=== PATIENT | female | born 1945 | race Caucasian/White ===

== ENCOUNTER 2018-05-02 12:06 | Observation (INO) | payer MEDICARE, SELFPAY ==
[2018-05-02] VITALS (7 sets, daily range): BP systolic 123–168; BP diastolic 65–91; PULSE 67–116; RESP 14–20; TEMP 36.7–37.3; O2SAT 95–100; BMI 32.9
--- NOTE | 2018-05-02 12:26 | DI.RAD.S_ITS ---
PROCEDURE: XR HIP W PEL IF DONE LT 2V INDICATIONS: left hip pain TECHNIQUE: AP pelvis with lateral view(s) of the left hip(s). COMPARISON: None. FINDINGS: Bones: There is a comminuted fracture of both the superior and inferior left pubic ramus with mild displacement. There is an ill-defined lucency seen on lateral view within the left femoral neck. It is nondisplaced. Soft tissues: The visualized bowel gas pattern is normal. Large calcification is present within the pelvis suggestive of calcified uterus/fibroid. IMPRESSION: Comminuted left superior and inferior pubic ramus fracture with mild displacement. In addition, there is a nondisplaced lucency within the left femoral neck seen on lateral view suspicious for fracture. Dictated by: Arlette Meadows M.D. on 05/02/2018 at 13:18 Approved by: Arlette Meadows M.D. on 05/02/2018 at 13:19
--- NOTE | 2018-05-02 14:15 | DI.CT.S_ITS ---
PROCEDURE: CT HEAD/BRAIN WO CON INDICATIONS: trauma TECHNIQUE: Noncontrast 4.5 mm thick angled axial sections acquired from the foramen magnum to the vertex, with coronal and sagittal reformats. For radiation dose reduction, the following was used: automated exposure control, adjustment of mA and/or kV according to patient size. COMPARISON: None. FINDINGS: Image quality: Excellent. CSF spaces: Basal cisterns are patent. No extra-axial fluid collections. The ventricles are symmetric in size and shape. Brain: No intracranial bleeds or masses. There is cerebral volume loss for age, with resultant ventricular and sulcal prominence. There are periventricular and deep white matter chronic small vessel ischemic changes. There is intracranial internal carotid artery atherosclerosis. Skull and face: Calvarium and visualized facial bones appear intact, without suspicious lesions. Sinuses: Visualized sinuses and mastoids are clear. IMPRESSION: 1. No acute intracranial process. 2. Moderate atrophy and chronic microvascular ischemic changes. Dictated by: Arlette Meadows M.D. on 05/02/2018 at 16:37 Approved by: Arlette Meadows M.D. on 05/02/2018 at 16:37
[2018-05-02] MEDS: HYDROMORPHONE 1 MG INJ 0.5 MG IV ×2 (14:34→17:56)
--- NOTE | 2018-05-02 14:36 | DI.CT.S_ITS ---
PROCEDURE: CT PEL WO CON INDICATIONS: hip fracture seen on x-ray today? TECHNIQUE: Noncontrast 3 mm axial sections acquired through the bony pelvis, with coronal and sagittal reformatting. COMPARISON: None. FINDINGS: Image quality: Excellent. Bones: As previously identified, there are comminuted fractures of both the superior and inferior left pubic ramus with displacement. In addition, there is a nondisplaced fracture of the left S1 vertebral body, obscured on prior exam secondary to overlying bowel gas. The there is no visualized left hip fracture as indicated of area of concern. However, there is sclerosis and areas of poorly defined sclerotic lucency within the right femoral head as well as areas of subchondral sclerosis and cyst formation. Soft tissues: Visualized soft tissues of the intra-abdominal pelvic contents demonstrates a large calcification within the uterus likely fibroid. Fat-containing ventral hernia is present. Colonic diverticula are noted. IMPRESSION: 1. Comminuted fracture of the superior and inferior left pubic rami. 2. Nondisplaced fracture of the left S1 vertebral body. 3. Focal areas of sclerosis and lucency within the right femoral head. Overall appearance is suggestive of chronic fracture. 4. Prominent calcification within the uterus likely fibroid. 5. Diverticulosis. Dictated by: Arlette Meadows M.D. on 05/02/2018 at 16:38 Approved by: Arlette Meadosw M.D. on 05/02/2018 at 16:44
--- NOTE | 2018-05-02 15:08 | PC.NURSE ---
pt. returns to room from head ct scan
[2018-05-02 15:50] LABS: Add Manual Diff / Slide Review NO; Basophils Percent Auto 0.3 % (0-2); Hematocrit 31.7 % (36-46); Hemoglobin 10.8 g/dL (12.0-16.0); Lymphocytes Percent Auto 19.3 % (25-40); Mean Corpuscular HGB Conc 34.2 % (30-36); Mean Corpuscular Hemoglobin 36.4 PG (26-34); Mean Corpuscular Volume 106.3 fL (80-100); Monocytes Percent Auto 10.5 % (3-14); Neutrophils Absolute Auto 4500 /uL (3000-5900); Neutrophils Percent Auto 69.9 % (50-75); Platelet Count 172 X10^3/uL (150-400); Red Blood Cell Count 2.98 X10^6/uL (4.0-5.2); Red Cell Distribution Width 14.2 % (11.6-14.8); White Blood Cell Count 6.4 X10^3/uL (4.5-11.0)
[2018-05-02 15:53] LABS: Alanine Aminotransferase 31 IU/L (9-52); Albumin Globulin Ratio 1.5 (1.0-2.8); Alkaline Phosphatase 114 U/L (38-126); Aspartate Aminotransferase 46 IU/L (14-36); Bilirubin Total 1.2 mg/dL (0.2-1.3); Blood Urea Nitrogen 14 mg/dL (7-17); Calcium 9.3 mg/dL (8.4-10.2); Carbon Dioxide 33 mmol/L (22-32); Chloride 98 mmol/L (98-107); Estimated Glomerular Filt Rate > 60.0 mL/min (>60); Ethanol (ETOH) < 10 mg/dL; Gamma Glutamyl Transpeptidase 66 U/L (12-43); Globulin 2.7 g/dL (1.7-4.1); Glucose 111 mg/dL (80-110); HEMOLYSIS < 15 (0-50); Potassium 3.7 mmol/L (3.4-5.1); Sodium 137 mmol/L (137-145); Total Protein 6.7 g/dL (6.3-8.2)
--- NOTE | 2018-05-02 16:49 | PC.NURSE ---
Pt. and updated about plann of care. Per MD - still awaiting final CT report to decide disposition. Pt. denies need at present. verbilizes same.
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
--- NOTE | 2018-05-02 17:01 | DI.CT.S_ITS ---
PROCEDURE: CT CERVICAL SPINE WO CON INDICATIONS: trauma? spine fxr w/ unclear history. TECHNIQUE: Noncontrast 3 mm thick sections acquired from the skull base to the T4 level. Sagittal and coronal reformats were then constructed. For radiation dose reduction, the following was used: automated exposure control, adjustment of mA and/or kV according to patient size. COMPARISON: None. FINDINGS: Image quality: Excellent. Bones: No fractures or dislocations. Visualized superior ribs are intact. There is slight reversal of normal cervical curvature. Multilevel degenerative changes are present including severe disc space narrowing at C5-6. There is trace anterolisthesis of C3 on C4, trace retrolisthesis of C5 on C6 and C6 on C7. Multilevel anterior osteophytes are present. Soft tissues: Prevertebral soft tissues are normal in thickness. No paravertebral hematomas. No apical pneumothoraces. IMPRESSION: Degenerative changes without visualized fracture. Dictated by: Arlette Meadows M.D. on 05/02/2018 at 18:44 Approved by: Arlette Meadows M.D. on 05/02/2018 at 18:46
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
--- NOTE | 2018-05-02 19:51 | PC.NURSE ---
attempted to call report - RN on floor not available.
[2018-05-02] MEDS: HYDROMORPHONE 0.5 MG INJ IV ×2 (21:43→22:17)
--- NOTE | 2018-05-02 23:42 | PC.NURSE ---
admit pt to ac from ER around 1999. VSS. pt admitted after falling last evening and being unable to ambulate today. Pt assisted to transfer via slider board. oriented to room and plan of care. medicated with IV dilaudid once order obtained and processed. bed alarm on per protocol. instructed not to attempt ambulation. order for adapted physical education teacher to consult/treat. fluids and nutrition provided. able to void to bedpan.
--- NOTE | 2018-05-03 00:51 | PC.NURSE ---
Addendum entered by Vanessa Todd R.N. 05/03/18 06:01: Needing to use bed [place] this morning and turning was very difficult and painful despite having received Dilaudid at 0416. Hollering out with movement stating I don't know how it can hurt this bad. Anxious about what is going to happen with therapy later today. Discussed need to be moving and not lying in same position as pain can be worse with inactivity; verbalizes understanding but still extremely reluctant with any movement and grabbing onto staff when turned. States most of pain is in left buttock. Original Note: Addendum entered by Vanessa Todd R.N. 05/03/18 05:26: Attempted to get patient to try repositioning but adamantly refuses stating I just work up. Explained that therapy would be working with her today and the longer she doesn't move the worse the pain will be when she does attempt to move. Verbalizes understanding but still declines to try any movement. States she doesn't need to use bedpan to void at this time. Refused to have Sherry bed tilted even slightly to change pressure. Original Note: Addendum entered by Vanessa Todd R.N. 05/03/18 04:33: Patient complaining of 6/10 left hip pain; medicated with Dilaudid Original Note: Patient is alert and oriented. Breath sounds CTA with RA sat of 94%. HRR. Denies nausea. BT present and abdomen is soft. Denies any urinary problems but currently needing to use bedpan due to pain and inability to walk due to fx/pain. Refusing to be turned unless needing to use bedpan. Chronic bilateral LE neuropathy unchanged since prior to admit. VSS. Fall risk is high and bed alarm is activated.
[2018-05-03 00:52] VITALS: BP 132/78; PULSE 77; RESP 15; TEMP 36.6; O2SAT 94
[2018-05-03] MEDS: SODIUM CHLORIDE 0.9% FLUSH 10 ML IV ×3 (04:17→21:22)
[2018-05-03] MEDS: HYDROMORPHONE 1 MG INJ IV (04:17)
[2018-05-03 07:35] VITALS: BP 121/67; PULSE 79; RESP 15; TEMP 36.9; O2SAT 97
--- NOTE | 2018-05-03 08:29 | PC.NURSE ---
Addendum entered by Debbie Hernandez R.N. 05/03/18 09:09: 0909 - D/c IV Dilaudid as Pt is having signifcant anxiety/paranoia, [place] ordered for pain control. Call into [facility] for pharmacy records. Original Note: Am shift, Pt is notably anxious this AM, fearful about POC, and expectation for the day. Is needing reassurance and encouragement about offloading pressure and bed mobility. PT into assess Pt and discussed options for bedrest. Calling out to staff for assist. BA active. No nausea, IVP Dilaudid for pain control, Pt does state this is very short acting. Will discuss with hospitalist.
--- NOTE | 2018-05-03 10:05 | PM.HP.1 ---
History of Present Illness Date Patient Seen: 05/03/18 Time Patient Seen: 09:30 Chief complaint: GLF 7/, L hip pain Narrative: Patient is a 72-year-old female who presented to the emergency department 1 day after a ground level fall. Patient and spouse live in [place] but are here traveling on their boat. Patient was returning to the boat and lost her balance and fell to the ground. She was able to get back to her boat but the following morning was unable to walk and paramedics were called who brought her to the emergency department. Imaging showed a left superior and inferior pubic rami fracture. Fall risk factor includes alcohol dependency. She denies prior history of fracture. She was admitted to hospital observation. This morning she has not yet ambulated out of bed. She complains of pain in the left buttock area with movement of the leg. Patient History Medical History Fracture of pelvis (Acute) Alcohol dependence (Chronic) Neuropathic pain (Chronic) Family & Social History Social History: household members spouse Prior Living Arrangements House Safety & Behavioral: Feels Safe in Current Yes Environment Been Physically Hurt or No Threatened By a Person Suicidal Ideation Description None Suicide Plan Description No Plan Tobacco & Substance use: Smoking Status Never smoker alcohol intake current alcohol intake frequency patient vague about intake, ?a few glasses of wine ? Substance Use Type does not use Meds Home Medications Medication Instructions Recorded Confirmed Type gabapentin 400 mg PO QPM 05/03/18 05/03/18 History Allergies Allergy/AdvReac Type Severity Reaction Status Date / Time codeine AdvReac Unknown Verified 05/02/18 12:24 ibuprofen AdvReac Unknown Verified 05/02/18 12:24 morphine AdvReac Unknown Verified 05/02/18 12:24 Sulfa (Sulfonamide AdvReac Unknown Verified 05/02/18 12:24 Antibiotics) Review of Systems Review of Systems All systems reviewed & are unremarkable except as noted in HPI and below Exam Vital Signs (past 8 hours): - 05/03/18 07:35 Temperature 98.4 F Pulse Rate 79 Respiratory Rate 15 Blood Pressure 121/67 H Pulse Oximetry 97 Oxygen Delivery Method Room Air Oxygen Flow Rate 0 Narrative Exam Narrative: GENERAL: Alert mildly anxious female but otherwise in no distress lying still in bed HEAD: Atraumatic. Normocephalic. EYES: Pupils equal, round and reactive. Extraocular motions intact. No scleral icterus. No injection or drainage. OROPHARYNX: moist mucosa NECK: Trachea midline. No JVD or lymphadenopathy. CARDIOVASCULAR: Regular rate and rhythm without murmurs, gallops, or rubs. RESPIRATORY: Clear to auscultation bilaterally. GASTROINTESTINAL: Abdomen nondistended, soft, non-tender. No hepato-splenomegaly, or palpable masses. EXTREMITIES: No edema. Distal pedal pulses easily palpable bilaterally. Diminished sensation in feet bilaterally. NEUROLOGICAL: Alert, well oriented, speech is intact, nonfocal except as relating to the left leg causes posterior hip pain with movement SKIN: warm, dry, no rash Objective Labs Result Diagrams: 05/02/18 15:35 05/02/18 15:35 Labs: Head CT noncontrast: No acute findings. Moderate atrophy and chronic microvascular changes. Pelvis CT: Comminuted fracture of superior and inferior left pubic rami, nondisplaced fracture of the left S1 vertebral body, focal areas of sclerosis and lucency within right femoral head suggestive of chronic fracture, likely uterine fibroid, diverticulosis C-spine CT: Degenerative changes, no acute finding Chest abdomen and pelvis CT with contrast:1. 3 mm right lower lobe pulmonary nodule, nonspecific. No priors are available for comparison. Recommend interval followup as below. 2. 4 mm focus of enhancement along the right lateral hepatic lobe. No priors are available for comparison. This is overall nonspecific. This could be related to a small hemangioma. Given history of trauma liver contusion/laceration cannot be definitively excluded. However, there is no surrounding secondary signs of trauma. Recommend clinical correlation and interval followup as indicated. 3. Comminuted left superior and inferior pubic rami fractures as previously identified. Sclerosis and lucency within the right femoral head most suggestive of chronic fracture again identified. 4. Uterine fibroid. Laboratory Results - last 24 hr 05/02/18 05/02/18 15:35 15:35 WBC 6.4 RBC 2.98 L Hgb 10.8 L Hct 31.7 L MCV 106.3 H MCH 36.4 H MCHC 34.2 RDW 14.2 Plt Count 172 Neut % (Auto) 69.9 Lymph % (Auto) 19.3 L [place] % (Auto) 10.5 Eos % (Auto) 0.0 L Baso % (Auto) 0.3 Neut # (Auto) 4500 Sodium 137 Potassium 3.7 Chloride 98 Carbon Dioxide 33 H BUN 14 Creatinine 0.50 L Estimated GFR > 60.0 BUN/Creatinine Ratio 28.0 H Glucose 111 H Calcium 9.3 Total Bilirubin 1.2 GGT 66 H AST 46 H ALT 31 Alkaline Phosphatase 114 Total Protein 6.7 Albumin 4.0 Globulin 2.7 Albumin/Globulin Ratio 1.5 Ethyl Alcohol < 10 Assessment & Plan Plan: Assessment/Plan Narrative: 1. Left pelvis fractures: Imaging reviewed. This is non surgically managed with weight-bearing as tolerated. Physical therapy consult requested. Ordered Tylenol and hydrocodone as needed. Patient started on low-dose Lovenox for DVT prophylaxis which should be continued until she is sufficiently ambulatory. At this time patient is not able to safely ambulate and will need longterm facility rehab placement. There is some suggestion on CT of chronic fracture right femoral head although patient denies past history of fracture but may certainly have had other falls in the past. 2. Alcohol dependence: Patient vague about alcohol intake but has significant suggestive laboratory abnormalities including macrocytic anemia, mildly elevated GGT and does confirm that she is drinking too much. Advise as to alcohol cessation and this is likely her predisposing risk factor for the fall. [facility] protocol. 3. Macrocytic anemia, likely chronic, likely ETOH related: Check vitamin B12 level as well. Patient and advise of laboratory abnormalities, recommendation for alcohol cessation, and recommendation for follow-up lab monitoring with her PCP. 4. Incidental findings on CT including 3-4 mm right lung nodule, likely liver hemangioma: Patient and advised on CT findings and consideration of repeat lung and/or liver CT in 1 year to ensure stability of findings. 5. Peripheral neuropathy, unknown etiology, but likely ETOH related: Continue patient's gabapentin 400 mg each evening per home routine. 6. Disposition: Observation admit, likely discharge ThursdayMay 04, to [facility]. Quality VTE Deep Vein Thrombosis/Pulmonary Embolism Present on Admission: No
[2018-05-03] MEDS: HYDROCODONE/ACET 5/325 TABLET 1 TAB PO (10:19)
--- NOTE | 2018-05-03 10:49 | CM.DANOTE ---
Addendum entered by TYE Gross 05/03/18 15:01: ADD: Per Maida at [facility], she met with pt's spouse and discussed financial arrangement and [facility] can accept the pt private pay at discharge. SW met bedside with pt and spouse was via phone and they confirmed that they are still agreeable to private pay SNF at [facility] when medically stable. BF Original Note: Patient is a 72 year old female who was admitted on 05/02/18 for GLF and hip pain. Pt has MCR and [employer] for insurance and her PCP is not listed due to pt residing in [place]. EMR was reviewed. Per MD, surgical intervention not needed at this time and recommending SNF rehab due to pain and mobility issues for likely tomorrow if still medically stable. Per PT, pt currently not tolerating much due to pain and recommending SNF at d/c. SW met bedside with pt and spouse and explained role and they confirmed that they live permanently in [place] and are currently staying in [place] on their large boat for an extended stay and have done this for the past 5 years. Pt's plan had been to go back to [place] on their boat on Thu but now realize that SNF rehab needed for a couple weeks prior to going back to [place] safely. SW provided the SNF Choice List and pt preference is [facility] and spouse already toured their facility. SW discussed pt's OBS STATUS and not meeting Medicare Criteria of Inpt Status to cover SNF rehab stay. SW discussed tentative daily cost of private pay SNF and encouraged them to discuss financial with [facility] admissions. Spouse agreeable and SW called [facility] admissions Maida and set up a time for them to discuss their questions and financial situation together at 1130 today. SW made referral to [facility] to review and completed PASRR. Plan: SW to follow closely after spouse discusses financial cost of Private Pay SNF with [facility] admissions Maida today towards likely placement tomorrow if pt is medically stable and pt and [facility] agreeable. TYE Gross Discharge Planning/Care Management CM Discharge Assessment Start: 05/03/18 10:44 Freq: Status: Active Protocol: Document 05/03/18 10:44 BF (Rec: 05/03/18 10:48 BF [id number]) Discharge Planning Assessment Assigned Software Licensing Executive TYE History Provided By Patient Significant Other Expected Length of Stay 2 Has Patient been admitted in last 30 No days? Is this patient on Medicare? Yes Is the admit diagnosis the same? Yes Comment Obs Status Prior Living Arrangements House Household Members spouse Type of transporation used prior to Drives own vehicle admit Comment Here from [place] staying on their large boat with plans to return home to [place] when pt is stable. Independent with ADL's Yes Is patient alert and oriented? Yes Caregiver for Another No Comment Patient independent with ADL's at baseline Patient Discharge Plan Description Correction Facility Referrals Initiated Correction Comment Patient would be private pay at SNF due to OBS STATUS Comment Pt needs SNF due to pain and inability to mobilize right now and staying on a boat while here. Discharge Plan Correction Facility Transportation Arrangement Likely provided by [facility] if pt's pain is manageable. If patient plan is SNF: Has PASSR been Yes completed? Review Status In Process Next Review Type Discharge Review
[2018-05-03 12:13] LABS: Vitamin B12 258 pg/mL (239-931)
[2018-05-03] MEDS: ENOXAPARIN 40 MG/0.4 ML SYRINGE SUBCUT (12:54)
[2018-05-03 13:00] VITALS: BP 110/56; PULSE 85; RESP 18; TEMP 36.8; O2SAT 96
--- NOTE | 2018-05-03 13:29 | PT.IIE ---
Medical History (Last Updated 05/03/18 @ 10:09 by Hans White MD) Fracture of pelvis (Acute) Alcohol dependence (Chronic) Neuropathic pain (Chronic) Physical Therapy Inpatient Evaluation/Re-Eval Medical Review Prior Functional Status Medical History Reviewed Yes Diet/Fluid Consistency Regular Communication no known deficits Mobility and Gait completely independent, never fallen before Activities of Daily Living and IADL's completely independent Prior Functional Level (Other details) considers herself a very active person, hates being sedentary Social History Household Members spouse Living Arrangements House Number of Floors (Floors) One Floor Number of Stairs To Enter/Railing? 0 Home Environment Standard Height Toilet Walk in Shower Employment Status Retired Additional Social History Comment lives in [place], has been in [place] on her boat for vacation. Physical Therapy Current Condition Current Condition Evaluation Date 05/03/18 Treatment Diagnosis S1, L pubic rami, and possible L prox femur fractures Onset Date 05/01/18 Weight Bearing Status Weight Bearing Status Weight Bear as Tolerated Subjective Physical Therapy Visit Type Type Initial Evaluation Physical Therapy Visit Comments Patient Comments Pt reports significant pain with any movement, really wants to get back to home in [place] as soon as possible. Therapy Pain Assessment Pain When Pain Assessed During Mobility Pain Present Pain Present Pain Reported Location Left Hip Intensity 10 Scale Used Numeric (1 - 10) Description Acute Sharp Stabbing With Movement Pain Behaviors Calling Out Crying Facial Grimacing Wincing Pain Management Techniques Apply Cold Distraction Modification of Treatment Re-positioning Timing of Activity with Medications PT-Bed Mobility Assessment Rolling Level of Assist Maximal Assistance 2 Person Assistance Scooting Scooting Up and Down in Bed Dependent PT-Transfer Assessment Transfers Transfer Technique Mechanical Lift Transfer Ability Level of Assist Total Assistance 2 Person Assistance Comments Mobility Comments Pt unable to actively participate in any mobility due to significant pain in L buttock/back, needs total assist. Gait Assessment Comments Gait Comments not appropriate to assess Stair Climbing Assessment Comments Stair Climbing Comments not appropriate to assess PT-Balance Assessment Comments Other Balance Tests/Deviations/Treatment unable to assess unsupported : seated balance, pt was able to maintain neutral position with HOB fairly elevated (no falling to either side). Orientation Orientation/Cognition Level of Alertness Alert Orientation Name Age Birthday Month Date Year Day of Week Place Situation Language Function Ability No Deficits Noted Safety Awareness Understands Safety Issues Memory Description No Deficits Noted Comments Pt reported being loopy from pain meds but was able to answer all questions without difficulty. Gross Range of Motion Upper Extremity ROM Assessment Within Functional Limits Lower Extremity ROM Impairments RLE grossly intact, LLE unable to test due to significant pain with any movement Strength Upper Extremity Strength Assessment Within Functional Limits Comments Strength Comments RLE grossly intact, LLE unable to test due to significant pain with any movement Physical Therapy Treatment Education Education Provided Precautions Weight Bearing Status Safety PT Summary Assessment and Plan Potential Rehabilitation Potential Fair Status of Condition at Evaluation Evolving Summary Impairments Pain Bed Mobility Transfers Gait Activity Tolerance Progress Towards Goals Slow Progress due to Pain Assessment Summary Pt is 2 days s/p GLF resulting in L pubic rami fractures, S1 vertebral body fracture, and possible L proximal femur fracture. Pt is currently most limited by significant pain, both at rest and especially with all movement. Pt is not able to actively participate in any mobility activities, requiring 2 person dep A for all mobility. This is well below pt's reported functional baseline, and it is not safe for pt to return to her home at this time (especially because it's in [place]). Pt does have potential for functional improvement and will benefit from transition to SNF rehab for continued skilled PT/OT at the subacute level. Pt/SO express understanding and are in agreement with this plan. Goals Bed Mobility Goal Moderate Assistance Transfer Goal Moderate Assistance Front Wheeled Walker Days to Meet Goals 3 Frequency of Treatment Frequency Of Treatment Twice a Day Treatment Plan Physical Therapy Treatment Plan Bed Mobility Training Transfer Training Gait Training Therapeutic Exercise Discharge Planning Recommendations To Nursing Amount of Assist Needed Total Assistance Mechanical Lift Discharge Recommendations PT Discharge Recommendations SNF Rehab
[2018-05-03] MEDS: HYDROCODONE/ACET 5/325 TABLET 2 TAB PO ×3 (13:45→21:22)
[2018-05-03 15:00] VITALS: BP 112/57; PULSE 78; RESP 16; TEMP 36.9; O2SAT 96
[2018-05-03] MEDS: GABAPENTIN 100 MG CAPSULE 400 MG PO (17:05)
[2018-05-03 20:00] VITALS: BP 134/73; PULSE 81; RESP 14; TEMP 36.9; O2SAT 95
--- NOTE | 2018-05-03 22:45 | PC.NURSE ---
Evening Shift Note Pt A&O, VSS, 99% RA. Pt consistently rating pain 10/10 pre pain medication, post pain medication expresses minimal relief 9/10, FLACC 4/10. Refusing minimal turning Q2H d/t pain. Pt reminded of high risk of pressure ulcers if not full off loaded from coccyx Q2H. Pt expresses understanding but continuously refusing full off loading from bottom and only slight changes, will push away this RN and CNAs when attempting to turn or reposition and yelling stop. Scheduled pain medication given tonight and currently pt resting peacefully, FLACC 0/10.
[2018-05-04 01:30] VITALS: BP 134/77; PULSE 81; RESP 16; TEMP 36.8; O2SAT 98
--- NOTE | 2018-05-04 01:37 | PC.NURSE ---
Addendum entered by Vanessa Todd R.N. 05/04/18 06:31: States she slept really well between being awakened to reposition, receive pain meds and/or use bedpan. States her hip feels different this morning and is wondering if the fx has gotten worse although states the pain is not as severe but still rates it as 6/10. Original Note: Addendum entered by Vanessa Todd R.N. 05/04/18 03:09: After receiving scheduled Vicodin patient was allowed to rest for 30 minutes and then turned to place on bedpan and remove bedpan. Each time she needs detailed explanations as to what is going to be done and then as soon as any movement begins she starts crying out to stop because it hurts too bad. Needs much reassurance during activity of moving but needs staff to be calm and persistent otherwise will not move. Once she was back positioned on side was more relaxed and calmer. During turn did state she heard something pop and now it feels different but was unable to state how it felt different or if it was better or worse. Original Note: Alert and oriented. Breath sounds CTA with RA sat of 98%. HRR. Denies nausea. BT present and abdomen is soft. Has been voiding using bedpan although extremely reluctant for any movement. Had been asleep since shift change and when asked questions upon waking would consistently respond with I'm just waking up and not answering specific questions. Discussed plan to reposition but patient states she needs to have some time before she is turned as I'm just waking up, and it hurts bad; is due for pain meds shortly. Fall risk score is high due to fall prior to hospitalization and bed alarm is activated. 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
[2018-05-04] MEDS: HYDROCODONE/ACET 5/325 TABLET 2 TAB PO ×2 (01:45→06:23)
[2018-05-04 08:25] VITALS: BP 110/63; PULSE 87; RESP 18; TEMP 36.8; O2SAT 96
[2018-05-04] MEDS: ENOXAPARIN 40 MG/0.4 ML SYRINGE SUBCUT (09:39)
[2018-05-04] MEDS: SODIUM CHLORIDE 0.9% FLUSH 10 ML IV ×2 (09:40→21:02)
[2018-05-04] MEDS: OXYCODONE IR 10 MG TABLET PO ×4 (10:04→21:01)
--- NOTE | 2018-05-04 10:28 | PM.PN.1 ---
Subjective Date Patient Seen: 05/04/18 Time Patient Seen: 08:28 Interval history: This is day 3 status post ground level fall with left superior and inferior pubic rami fracture. Patient appears of slept well in between nursing care tasks. When awakened she complains of severe hip discomfort, ?wondering if the fracture is worse?. She appears very hesitant to move or work with physical therapy and she describes her pain 10/10 with movement. Both her and her are insistent about staying 1 more night to ?be stabilized? for pain control. Exam Vital Signs (past 8 hours): - 05/04/18 08:25 Temperature 98.3 F Pulse Rate 87 Respiratory Rate 18 Blood Pressure 110/63 Pulse Oximetry 96 Oxygen Delivery Method Room Air Oxygen Flow Rate 0 Const General: cooperative, healthy appearing, comfortable, well developed and well groomed Nutritional Appearance: average body habitus Orientation: alert, awake and oriented x3 HENMT Head: normal to inspection, normocephalic and atraumatic Eyes General: appearance normal, both eyes and all related structures Pupils: PERRL Neck Neck: normal visual inspection, trachea midline and supple Other: No JVD or lymphadenopathy Chest Chest: normal inspection of the chest Resp Effort & Inspection: normal respiratory effort and able to speak in complete sentences Auscultation: clear to auscultation bilaterally Cardio Rate: regular rate Rhythm: regular rhythm Heart Sounds: S1 normal and S2 normal Other: No rubs, gallops, clicks or murmurs appreciated GI Inspection: normal to inspection Palpation: soft Percussion: normal to percussion Auscultation: normal bowel sounds Other: No masses or tenderness Other: Voiding without difficulty Back/Spine/Pelvis Other: Patient complains of left hip and pelvic discomfort with movement of left leg. Skin General: no rashes or lesions noted, dry skin and warm Neuro General: alert, awake and oriented x3 Cognition: normal cognition Speech: speech normal Other: Decreased muscle strength on left lower extremity related to pain and discomfort. Decreased sensitivity to tactile stimulus in lower extremities secondary to neuropathy. Extrem General: capillary refill normal, no pedal edema and no calf tenderness Psych Appearance: grossly normal Mood: congruent mood Affect: normal affect Attitude: cooperative Thought Process: normal Thought Content: normal Judgment: judgment good Objective Labs Result Diagrams: 05/02/18 15:35 05/02/18 15:35 Labs: Laboratory Results - last 24 hr 05/02/18 15:35 Vitamin B12 258 Assessment & Plan Plan: Assessment/Plan Narrative: 1. Left pelvis fractures: Imaging reviewed. This is non surgically managed with weight-bearing as tolerated. Physical therapy evaluated this patient. She has not had any weight-bearing as of this morning secondary to her discomfort. She was changed to oxycodone q.3 hours for pain control. Patient started on low-dose Lovenox for DVT prophylaxis which should be continued until she is sufficiently ambulatory. At this time patient is not able to safely ambulate and will need nursing home facility rehab placement. There is some suggestion on CT of chronic fracture right femoral head although patient denies past history of fracture but may certainly have had other falls in the past. 2. Alcohol dependence: Patient vague about alcohol intake but has significant suggestive laboratory abnormalities including macrocytic anemia, mildly elevated GGT and does confirm that she is drinking too much. Advise as to alcohol cessation and this is likely her predisposing risk factor for the fall. CIWA protocol. CIWA scores 4-5. She was started on p.o. Xanax this morning for control of her anxiety. 3. Macrocytic anemia, likely chronic, likely ETOH related: Vitamin B12 level was normal. Patient and advise of laboratory abnormalities, recommendation for alcohol cessation, and recommendation for follow-up lab monitoring with her PCP. 4. Incidental findings on CT including 3-4 mm right lung nodule, likely liver hemangioma: Patient and advised on CT findings and consideration of repeat lung and/or liver CT in 1 year to ensure stability of findings. 5. Peripheral neuropathy, unknown etiology, but likely ETOH related: Continue patient's gabapentin 400 mg each evening per home routine. 6. Disposition: Observation admit, likely discharge ThursdayMay 05, to [facility] for further rehab. Quality VTE Deep Vein Thrombosis/Pulmonary Embolism Present on Admission: No
[2018-05-04] MEDS: ALPRAZolam 0.25 MG TABLET PO ×2 (10:34→16:48)
--- NOTE | 2018-05-04 11:50 | PT.IPTN ---
Physical Therapy Treatment Note M2 PT-IP Current Condition Start: 05/03/18 07:31 Freq: NEEDED Status: Active Protocol: Document 05/03/18 09:27 RS (Rec: 05/03/18 09:32 RS [id number]) Physical Therapy Current Condition Current Condition Evaluation Date 05/03/18 Treatment Diagnosis S1, L pubic rami, and possible L prox femur fractures Onset Date 05/01/18 Weight Bearing Status Weight Bearing Status Weight Bear as Tolerated M3 PT-IP Subjective Start: 05/03/18 07:31 Freq: NEEDED Status: Active Protocol: Document 05/04/18 11:53 GGD (Rec: 05/04/18 12:03 GGD [id number]) Subjective Physical Therapy Visit Type Type Treatment Note Visit Start Time 11:10 Visit Stop Time 11:50 Total Visit Minutes 40 Number of GEOSPATIAL APPLICATIONS DEVELOPER Visits 1 Physical Therapy Visit Comments Patient Comments Pt states that she needs to use the bathroom. Therapy Pain Assessment Pain When Pain Assessed At Rest Pain Present Pain Present Pain Reported M4 PT-IP Mobility and Gait Start: 05/03/18 07:31 Freq: NEEDED Status: Active Protocol: Document 05/04/18 11:53 GGD (Rec: 05/04/18 12:03 GGD [id number]) PT-Bed Mobility Assessment Supine to Sit Supine to Sit Moderate Assistance Head of Bed Elevated Bedrails Scooting Scooting to Edge of Bed Minimal Assistance PT-Transfer Assessment Sit to and From Stand Sit to and from Stand Moderate Assistance 1 Person Assistance Use of Upper Extremities Equipment Transfer Assistive Device Gait Belt Front Wheeled Walker Transfers Transfer Destination Chair Toilet Transfer Technique Stand Pivot Transfer Ability Level of Assist Moderate Assistance 1 Person Assistance Comments Mobility Comments Pt transfer to BSC and then stand with BSC and chair placed behind. She need min a for sitting to chair. M5 PT-IP Objective Assessments Start: 05/03/18 07:31 Freq: NEEDED Status: Active Protocol: Document 05/03/18 13:18 RS (Rec: 05/03/18 13:29 RS [id number]) Orientation Orientation/Cognition Level of Alertness Alert Orientation Name Age Birthday Month Date Year Day of Week Place Situation Language Function Ability No Deficits Noted Safety Awareness Understands Safety Issues Memory Description No Deficits Noted Comments Pt reported being loopy from pain meds but was able to answer all questions without difficulty. Gross Range of Motion Upper Extremity ROM Assessment Within Functional Limits Lower Extremity ROM Impairments RLE grossly intact, LLE unable to test due to significant pain with any movement Strength Upper Extremity Strength Assessment Within Functional Limits Comments Strength Comments RLE grossly intact, LLE unable to test due to significant pain with any movement M6 PT-IP Treatment Start: 05/03/18 07:31 Freq: NEEDED Status: Active Protocol: Document 05/03/18 13:18 RS (Rec: 05/03/18 13:29 RS [id number]) Physical Therapy Treatment Education Education Provided Precautions Weight Bearing Status Safety M7 PT-IP Assessment and Plan Start: 05/03/18 07:31 Freq: NEEDED Status: Active Protocol: Document 05/04/18 11:53 GGD (Rec: 05/04/18 12:03 GGD [id number]) PT Summary Assessment and Plan Summary Assessment Summary Pt improved with mobility. She was able to move left leg. She was able to take small scooting steps with R LE. She had poor tolerance with l LE weight bearing. She was very slow moving and prefer to move self and need breaks for pain control. Frequency of Treatment Frequency Of Treatment Twice a Day Treatment Plan Physical Therapy Treatment Plan Bed Mobility Training Transfer Training Gait Training Therapeutic Exercise Discharge Planning Recommendations To Nursing Amount of Assist Needed 2 Person Assist Discharge Recommendations PT Discharge Recommendations SNF Rehab
--- NOTE | 2018-05-04 14:55 | PT.IPTN ---
Physical Therapy Treatment Note M2 PT-IP Current Condition Start: 05/03/18 07:31 Freq: NEEDED Status: Active Protocol: Document 05/03/18 09:27 RS (Rec: 05/03/18 09:32 RS [id number]) Physical Therapy Current Condition Current Condition Evaluation Date 05/03/18 Treatment Diagnosis S1, L pubic rami, and possible L prox femur fractures Onset Date 05/01/18 Weight Bearing Status Weight Bearing Status Weight Bear as Tolerated M3 PT-IP Subjective Start: 05/03/18 07:31 Freq: NEEDED Status: Active Protocol: Document 05/04/18 14:40 RS (Rec: 05/04/18 14:55 RS [id number]) Subjective Physical Therapy Visit Type Type Treatment Note Visit Start Time 14:00 Visit Stop Time 14:40 Total Visit Minutes 40 Number of CAREER EDUCATION TEACHER Visits 0 Physical Therapy Visit Comments Patient Comments Pt very nervous/anxious about transferring again but really wants to get back to bed. Therapy Pain Assessment Pain When Pain Assessed During Mobility Pain Present Pain Present Pain Reported Location Left Hip Intensity 10 Pain Management Techniques Apply Cold Elevation Modification of Treatment Re-positioning Timing of Activity with Medications M4 PT-IP Mobility and Gait Start: 05/03/18 07:31 Freq: NEEDED Status: Active Protocol: Document 05/04/18 14:40 RS (Rec: 05/04/18 14:55 RS [id number]) PT-Bed Mobility Assessment Sit to Supine Sit to Supine Total Assistance 2 Person Assistance Scooting Scooting to Edge of Bed Dependent PT-Transfer Assessment Sit to and From Stand Sit to and from Stand Moderate Assistance 1 Person Assistance Use of Upper Extremities Equipment Transfer Assistive Device Gait Belt Front Wheeled Walker Transfers Transfer Destination Bed Bedside Commode Transfer Technique Stand Pivot Comments Mobility Comments Needs a lot of reassurance and anti-anxiety distractions. Gait Assessment Comments Gait Comments not appropriate to assess Stair Climbing Assessment Comments Stair Climbing Comments not appropriate to assess PT-Balance Assessment Sitting Balance and Reactions Static Sitting Balance Ability Good Dynamic Sitting Balance Ability Fair Standing Balance and Reactions Static Standing Balance Ability Poor Dynamic Standing Balance Ability Poor Device Used FWW M5 PT-IP Objective Assessments Start: 05/03/18 07:31 Freq: NEEDED Status: Active Protocol: Document 05/03/18 13:18 RS (Rec: 05/03/18 13:29 RS [id number]) Orientation Orientation/Cognition Level of Alertness Alert Orientation Name Age Birthday Month Date Year Day of Week Place Situation Language Function Ability No Deficits Noted Safety Awareness Understands Safety Issues Memory Description No Deficits Noted Comments Pt reported being loopy from pain meds but was able to answer all questions without difficulty. Gross Range of Motion Upper Extremity ROM Assessment Within Functional Limits Lower Extremity ROM Impairments RLE grossly intact, LLE unable to test due to significant pain with any movement Strength Upper Extremity Strength Assessment Within Functional Limits Comments Strength Comments RLE grossly intact, LLE unable to test due to significant pain with any movement M6 PT-IP Treatment Start: 05/03/18 07:31 Freq: NEEDED Status: Active Protocol: Document 05/03/18 13:18 RS (Rec: 05/03/18 13:29 RS [id number]) Physical Therapy Treatment Education Education Provided Precautions Weight Bearing Status Safety M7 PT-IP Assessment and Plan Start: 05/03/18 07:31 Freq: NEEDED Status: Active Protocol: Document 05/04/18 14:40 RS (Rec: 05/04/18 14:55 RS [id number]) PT Summary Assessment and Plan Potential Rehabilitation Potential Fair Status of Condition at Evaluation Evolving Summary Impairments Pain Bed Mobility Transfers Gait Activity Tolerance Progress Towards Goals Slow Progress due to Pain Assessment Summary Pt still very anxious and needing step by step cues and strategies for distraction while attempting to mobilize. Pt performed two transfers, chair>bsc to the R and required 2 person mod A, having a lot more difficulty pivoting. Pt then perform bsc> bed to the R and was able to complete at more of a 1 person min A level. Pt is making improvements and will continue to benefit from skilled therapies at [facility] prior to returning home. Goals Bed Mobility Goal Moderate Assistance Transfer Goal Minimal Assistance Front Wheeled Walker Days to Meet Goals 2 Frequency of Treatment Frequency Of Treatment Twice a Day Treatment Plan Physical Therapy Treatment Plan Bed Mobility Training Transfer Training Gait Training Therapeutic Exercise Discharge Planning Recommendations To Nursing Amount of Assist Needed 2 Person Assist Discharge Recommendations PT Discharge Recommendations SNF Rehab
[2018-05-04 16:00] VITALS: BP 114/63; PULSE 84; RESP 16; TEMP 36.6; O2SAT 96
--- NOTE | 2018-05-04 16:00 | CM.DPNOTE ---
DCP/continued: Received verbal referral from STAGE RIGGER/Sahil Corona that patient complaining of pain today. Sahil plans to adjust pain medications and is hopeful that patient will be medically stable for discharge tomorrow 05-05-18. LICENSING SERVICES CLERK left message with Maida at [facility]. Current d/c plan is for patient to go to [facility] via private pay when medically stable (see LICENSING SERVICES CLERK assessment for details). P: [facility] when stable. TYE Hameed
[2018-05-04 18:03] LABS: Vitamin D 25 Hydroxy (D3) 25.1 ng/mL (30.0-100.0)
[2018-05-04] MEDS: GABAPENTIN 100 MG CAPSULE 400 MG PO (21:01)
[2018-05-05] MEDS: OXYCODONE IR 10 MG TABLET PO ×3 (04:05→10:15)
[2018-05-05] MEDS: ALPRAZolam 0.25 MG TABLET PO ×2 (04:05→10:15)
[2018-05-05 04:43] VITALS: BP 118/72; PULSE 97; RESP 16; TEMP 36.8; O2SAT 94
[2018-05-05 05:39] LABS: Add Manual Diff / Slide Review NO; Basophils Percent Auto 0.3 % (0-2); Eosinophils Percent Auto 0.9 % (2-4); Hematocrit 31.1 % (36-46); Hemoglobin 10.6 g/dL (12.0-16.0); Lymphocytes Percent Auto 22.3 % (25-40); Mean Corpuscular Hemoglobin 36.2 PG (26-34); Mean Corpuscular Volume 106.5 fL (80-100); Monocytes Percent Auto 13.8 % (3-14); Neutrophils Absolute Auto 3400 /uL (3000-5900); Neutrophils Percent Auto 62.7 % (50-75); Platelet Count 195 X10^3/uL (150-400); Red Blood Cell Count 2.92 X10^6/uL (4.0-5.2); Red Cell Distribution Width 13.6 % (11.6-14.8); White Blood Cell Count 5.5 X10^3/uL (4.5-11.0)
[2018-05-05 05:47] LABS: Carbon Dioxide 30 mmol/L (22-32); Chloride 96 mmol/L (98-107); HEMOLYSIS < 15 (0-50); Potassium 3.1 mmol/L (3.4-5.1); Sodium 134 mmol/L (137-145)
[2018-05-05 07:55] VITALS: BP 121/63; PULSE 96; RESP 16; TEMP 36.6; O2SAT 95
--- NOTE | 2018-05-05 08:41 | PM.DS.1 ---
History of Present Illness Date Patient Seen: 05/05/18 Time Patient Seen: 08:42 Chief complaint: GLF 7/21, L hip pain Narrative: Patient is a 72-year-old female who presented to the emergency department 1 day after a ground level fall. Patient and spouse live in [place] but are here traveling on their boat. Patient was returning to the boat and lost her balance and fell to the ground. She was able to get back to her boat but the following morning was unable to walk and paramedics were called who brought her to the emergency department. Imaging showed a left superior and inferior pubic rami fracture. Fall risk factor includes alcohol dependency. She denies prior history of fracture. She was admitted to hospital observation. This morning she has not yet ambulated out of bed. She complains of pain in the left buttock area with movement of the leg. Discharge Providers Date of admission: 05/02/18 20:58 Consults: 05/02/18 21:10 Consult to Physical Therapy Evaluate & Treat Comment: left hip fx Physician Instructions: Evaluate and Treat 05/03/18 09:04 Consult to Discharge Planning Routine Comment: may need snf Discharge provider: ANGELA Calhoun Summary Discharge Diagnosis: 1. Left pelvic fracture 2. Alcohol dependence 3. Macrocytic anemia 4. Peripheral neuropathy 5. Vitamin-D deficiency 6. Diverticulosis Hospital Course: This is a summary of a 3 day hospitalization with a 72-year-old patient who presented to the emergency room with pelvic pain for for previous day a ground level fall. She was hospitalized on observation for pain control. CT showed comminuted fracture of the superior and inferior left pubic rami. There is also a nondisplaced fracture of the left S1 vertebral body. Her pain and anxiety was better controlled with oxycodone and Xanax. She began working with Physical therapy yesterday and is able to weight bear and transfer to chair and take a few steps. She has not shown any signs of alcohol withdrawal during this hospitalization. Her CIWA scores were 0-3. She does show a macrocytic anemia, likely chronic, likely ETOH related. Also she does have a bilateral lower leg peripheral neuropathy of unknown etiology but again most likely to alcohol-related intake. She will continue on her gabapentin 400 mg each evening for her home routine. There is also an incidental finding on CT where she had a 3-4 mm right lung nodule, and a likely liver hemangioma. Patient and her were advised on CT findings and consideration of a repeat lung and/or liver CT in about 1 year to ensure stability of findings. She was also started on 2000 I.U. vitamin D for a vitamin D level of 25. She will be discharged to [facility] for further rehab. Status at Discharge Functional status at discharge: uses cane/walker Overall status at discharge: patient is progressing back to baseline Time Spent with Patient Greater than 30 minutes Exam Vital Signs (past 8 hours): - 05/05/18 04:43 05/05/18 07:55 Temperature 98.3 F 97.9 F Pulse Rate 97 H 96 H Respiratory Rate 16 16 Blood Pressure 118/72 121/63 H Pulse Oximetry 94 95 Oxygen Delivery Method Room Air Oxygen Flow Rate 0 Narrative Exam Narrative: General: appearance normal, both eyes and all related structures Pupils: PERRL Neck Neck: normal visual inspection, trachea midline and supple Other: No JVD or lymphadenopathy Chest Chest: normal inspection of the chest Resp Effort & Inspection: normal respiratory effort and able to speak in complete sentences Auscultation: clear to auscultation bilaterally Cardio Rate: regular rate Rhythm: regular rhythm Heart Sounds: S1 normal and S2 normal Other: No rubs, gallops, clicks or murmurs appreciated GI Inspection: normal to inspection Palpation: soft Percussion: normal to percussion Auscultation: normal bowel sounds Other: No masses or tenderness Other: Voiding without difficulty Back/Spine/Pelvis Other: Patient complains of left hip and pelvic discomfort with movement of left leg, markedly less than yesterday. Skin General: no rashes or lesions noted, dry skin and warm Neuro General: alert, awake and oriented x3 Cognition: normal cognition Speech: speech normal Other: Decreased muscle strength on left lower extremity related to pain and discomfort but improved since yesterday. Decreased sensitivity to tactile stimulus in lower extremities secondary to neuropathy. Extrem General: capillary refill normal, no pedal edema and no calf tenderness Psych Appearance: grossly normal Mood: congruent mood Affect: normal affect Attitude: cooperative Thought Process: normal Thought Content: normal Judgment: judgment good Objective Labs Result Diagrams: 05/05/18 05:20 05/05/18 05:20 Labs: Laboratory Results - last 24 hr 07/24/18 07/25/18 07/25/18 17:16 05:20 05:20 WBC 5.5 RBC 2.92 L Hgb 10.6 L Hct 31.1 L MCV 106.5 H MCH 36.2 H MCHC 34.0 RDW 13.6 Plt Count 195 Neut % (Auto) 62.7 Lymph % (Auto) 22.3 L [place] % (Auto) 13.8 Eos % (Auto) 0.9 L Baso % (Auto) 0.3 Neut # (Auto) 3400 Sodium 134 L Potassium 3.1 L Chloride 96 L Carbon Dioxide 30 Magnesium 2.0 25-OH Vitamin D Total 25.1 L PROCEDURE: CT PEL WO CON INDICATIONS: hip fracture seen on x-ray today? TECHNIQUE: Noncontrast 3 mm axial sections acquired through the bony pelvis, with coronal and sagittal reformatting. COMPARISON: None. FINDINGS: Image quality: Excellent. Bones: As previously identified, there are comminuted fractures of both the superior and inferior left pubic ramus with displacement. In addition, there is a nondisplaced fracture of the left S1 vertebral body, obscured on prior exam secondary to overlying bowel gas. The there is no visualized left hip fracture as indicated of area of concern. However, there is sclerosis and areas of poorly defined sclerotic lucency within the right femoral head as well as areas of subchondral sclerosis and cyst formation. Soft tissues: Visualized soft tissues of the intra-abdominal pelvic contents demonstrates a large calcification within the uterus likely fibroid. Fat-containing ventral hernia is present. Colonic diverticula are noted. IMPRESSION: 1. Comminuted fracture of the superior and inferior left pubic rami. 2. Nondisplaced fracture of the left S1 vertebral body. 3. Focal areas of sclerosis and lucency within the right femoral head. Overall appearance is suggestive of chronic fracture. 4. Prominent calcification within the uterus likely fibroid. 5. Diverticulosis. Dictated by: Arlette Meadows M.D. on 05/02/2018 at 16:38 Approved by: Arlette Meadows M.D. on 05/02/2018 at 16:44 PROCEDURE: CT CERVICAL SPINE WO CON INDICATIONS: trauma? spine fxr w/ unclear history. TECHNIQUE: Noncontrast 3 mm thick sections acquired from the skull base to the T4 level. Sagittal and coronal reformats were then constructed. For radiation dose reduction, the following was used: automated exposure control, adjustment of mA and/or kV according to patient size. COMPARISON: None. FINDINGS: Image quality: Excellent. Bones: No fractures or dislocations. Visualized superior ribs are intact. There is slight reversal of normal cervical curvature. Multilevel degenerative changes are present including severe disc space narrowing at C5-6. There is trace anterolisthesis of C3 on C4, trace retrolisthesis of C5 on C6 and C6 on C7. Multilevel anterior osteophytes are present. Soft tissues: Prevertebral soft tissues are normal in thickness. No paravertebral hematomas. No apical pneumothoraces. IMPRESSION: Degenerative changes without visualized fracture. Dictated by: Arlette Meadows M.D. on 05/02/2018 at 18:44 Approved by: Arlette Meadows M.D. on 05/02/2018 at 18:46 PROCEDURE: CT CHEST ABD PEL W CON INDICATIONS: trauma? spine fxr w/ unclear hx TECHNIQUE: After the administration of intravenous contrast, 5 mm thick sections acquired from the lung apices to the symphysis. 2.5 mm thick coronal and sagittal reformats were acquired. Additional 7 mm thick coronal maximum intensity projection (MIP) reformats acquired through the lungs. Optional 10-minute delayed imaging may be performed from the kidneys to the bladder. For radiation dose reduction, the following was used: automated exposure control, adjustment of mA and/or kV according to patient size. COMPARISON: , CT, CT PEL WO CON, 05/02/2018, 14:34. , CR, XR HIP W PEL IF DONE LT 2V, 05/02/2018, 12:18. FINDINGS: Image quality: Excellent. CHEST: Lungs: No pulmonary contusions or lacerations. No acute airspace opacities. No pneumothorax or hemothorax. Central and peripheral airways appear patent and normal in caliber. Mediastinum: No mediastinal hematomas. Heart size is normal. No pericardial effusion. Thoracic aorta and pulmonary arteries demonstrate normal size and enhancement. No mediastinal or hilar adenopathy. Esophagus demonstrates mild circumferential distal thickening with hiatal hernia. Chest wall: No rib fractures. No subcutaneous emphysema. No axillary or supraclavicular adenopathy. Thyroid gland is unremarkable. ABDOMEN: Solid organs: Liver is enlarged and demonstrates steatosis. 4 mm focus of enhancement is present along the lateral aspect of the right hepatic lobe on series 3 image 66. Gallbladder is unremarkable. Biliary system is non-dilated. Pancreas enhances normally, without transection. Spleen is normal in size and enhancement, without lacerations. No adrenal hematomas. Both kidneys enhance normally, without hydronephrosis or lacerations. Peritoneum and bowel: No free fluid or air. Unenhanced bowel loops demonstrate normal wall thickness and caliber. Nodes and vessels: No retroperitoneal or mesenteric adenopathy. Aorta and inferior vena cava are normal in size and enhancement. Miscellaneous: No ventral hernias. PELVIS: Genitourinary: Bladder wall thickness is normal. Prominent calcifications present within the uterus, likely fibroid. Miscellaneous: No inguinal hernias or adenopathy. Bones: Comminuted left superior and inferior pubic ramus fractures are identified. In addition, there are areas of sclerosis and lucency identified within the right femoral head, as noted on CT pelvis of 05/02/18. IMPRESSION: 1. 3 mm right lower lobe pulmonary nodule, nonspecific. No priors are available for comparison. Recommend interval followup as below. 2. 4 mm focus of enhancement along the right lateral hepatic lobe. No priors are available for comparison. This is overall nonspecific. This could be related to a small hemangioma. Given history of trauma liver contusion/laceration cannot be definitively excluded. However, there is no surrounding secondary signs of trauma. Recommend clinical correlation and interval followup as indicated. 3. Comminuted left superior and inferior pubic rami fractures as previously identified. Sclerosis and lucency within the right femoral head most suggestive of chronic fracture again identified. 4. Uterine fibroid. Fleischner Society criteria for lung nodule followup. Nodule size (mm)Low-risk patientHigh-risk patient<6 (single or multiple)No routine followup/Optional CT at 12 months.6-8 (single or multiple)CT at 6-12 months; then noptional CT at 18-24 monthsCT at 6-12 months, then 18-24 months i>8 (single)CT at 3 months, then optional CT at 18-24 months if no change.Initial follow-up CT at 3-6 months, then 18-24 months >8 (multiple)CT at 3-[address] at 18-24 months.CT at 3-6 months, then CT at 18-24 months.Non-solid (ground-glass) or partly solid nodules may require longer follow-up to exclude indolent adenocarcinoma. Dictated by: Arlette Meadows M.D. on 05/02/2018 at 18:33 Approved by: Arlette Meadows M.D. on 05/02/2018 at 18:44 PROCEDURE: CT HEAD/BRAIN WO CON INDICATIONS: trauma TECHNIQUE: Noncontrast 4.5 mm thick angled axial sections acquired from the foramen magnum to the vertex, with coronal and sagittal reformats. For radiation dose reduction, the following was used: automated exposure control, adjustment of mA and/or kV according to patient size. COMPARISON: None. FINDINGS: Image quality: Excellent. CSF spaces: Basal cisterns are patent. No extra-axial fluid collections. The ventricles are symmetric in size and shape. Brain: No intracranial bleeds or masses. There is cerebral volume loss for age, with resultant ventricular and sulcal prominence. There are periventricular and deep white matter chronic small vessel ischemic changes. There is intracranial internal carotid artery atherosclerosis. Skull and face: Calvarium and visualized facial bones appear intact, without suspicious lesions. Sinuses: Visualized sinuses and mastoids are clear. IMPRESSION: 1. No acute intracranial process. 2. Moderate atrophy and chronic microvascular ischemic changes. Dictated by: Arlette Meadows M.D. on 05/02/2018 at 16:37 Approved by: Arlette Meadows M.D. on 05/02/2018 at 16:37 Discharge Plan Discharge Plan Patient Disposition: SNF Transfer to: [facility] Transportation: Facility vehicle Discharge comment: Patient will need physical therapy and occupational therapy. She is visiting from [place] no need to follow up with her PCP I certify the postop hospital senior care care is medically necessary on a continuing basis for any conditions for which he/ she received care during this hospitalization.: Yes The receiving facility has agreed to accept transfer and provide medical treatment.: Yes Discharge Med Rec/Prescriptions Prescriptions: New alprazolam 0.25 mg Tablet 0.25 mg PO Q6H PRN (Reason: Anxiety) 5 Days RF: 0 cholecalciferol (vitamin D3) [Vitamin D3] 1,000 unit Tablet 2,000 unit PO DAILY 30 Days RF: 3 oxycodone 10 mg Tablet 10 mg PO Q3HR PRN (Reason: Pain, Severe (7-10)) 5 Days RF: 0 Continue gabapentin 100 mg capsule 400 mg PO QPM RF: 0 Discharge Health Status Multidrug resistant organism: No MDRO Precautions: [place] Provider Discharge Instructions Diet: Regular Food texture: Regular Activity: Up with assistance Oxygen: Room air [facility] Reason for rehabilitation: Recovery r/t decondition Rehab type: Physical therapy and Occupational therapy Visit Report/Discharge Packet Instructions: Pelvic Fracture, DI for Pelvic Fracture Discharge Data Attending Provider: Hans White Admit Date/Time: 05/02/18 20:58 Quality VTE Deep Vein Thrombosis/Pulmonary Embolism Present on Admission: No
--- NOTE | 2018-05-05 08:54 | P.DS_ITS ---
History of Present Illness Date Patient Seen: 05/05/18 Time Patient Seen: 08:42 Chief complaint: GLF 7/21, L hip pain Narrative: Patient is a 72-year-old female who presented to the emergency department 1 day after a ground level fall. Patient and spouse live in [place] but are here traveling on their boat. Patient was returning to the boat and lost her balance and fell to the ground. She was able to get back to her boat but the following morning was unable to walk and paramedics were called who brought her to the emergency department. Imaging showed a left superior and inferior pubic rami fracture. Fall risk factor includes alcohol dependency. She denies prior history of fracture. She was admitted to hospital observation. This morning she has not yet ambulated out of bed. She complains of pain in the left buttock area with movement of the leg. Discharge Providers Date of admission: 05/02/18 20:58 Consults: 05/02/18 21:10 Consult to Physical Therapy Evaluate & Treat Comment: left hip fx Physician Instructions: Evaluate and Treat 05/03/18 09:04 Consult to Discharge Planning Routine Comment: may need snf Discharge provider: ANGELA Calhoun Summary Discharge Diagnosis: 1. Left pelvic fracture 2. Alcohol dependence 3. Macrocytic anemia 4. Peripheral neuropathy 5. Vitamin-D deficiency 6. Diverticulosis Hospital Course: This is a summary of a 3 day hospitalization with a 72-year- old patient who presented to the emergency room with pelvic pain for for previous day a ground level fall. She was hospitalized on observation for pain control. CT showed comminuted fracture of the superior and inferior left pubic rami. There is also a nondisplaced fracture of the left S1 vertebral body. Her pain and anxiety was better controlled with oxycodone and Xanax. She began working with Physical therapy yesterday and is able to weight bear and transfer to chair and take a few steps. She has not shown any signs of alcohol withdrawal during this hospitalization. Her CIWA scores were 0-3. She does show a macrocytic anemia, likely chronic, likely ETOH related. Also she does have a bilateral lower leg peripheral neuropathy of unknown etiology but again most likely to alcohol-related intake. She will continue on her gabapentin 400 mg each evening for her home routine. There is also an incidental finding on CT where she had a 3-4 mm right lung nodule, and a likely liver hemangioma. Patient and her were advised on CT findings and consideration of a repeat lung and/or liver CT in about 1 year to ensure stability of findings. She was also started on 2000 I.U. vitamin D for a vitamin D level of 25. She will be discharged to [facility] for further rehab. Status at Discharge Functional status at discharge: uses cane/walker Overall status at discharge: patient is progressing back to baseline Time Spent with Patient Greater than 30 minutes Exam Vital Signs (past 8 hours): - 05/05/18 04:43 05/05/18 07:55 Temperature 98.3 F 97.9 F Pulse Rate 97 H 96 H Respiratory Rate 16 16 Blood Pressure 118/72 121/63 H Pulse Oximetry 94 95 Oxygen Delivery Method Room Air Oxygen Flow Rate 0 Narrative Exam Narrative: General: appearance normal, both eyes and all related structures Pupils: PERRL Neck Neck: normal visual inspection, trachea midline and supple Other: No JVD or lymphadenopathy Chest Chest: normal inspection of the chest Resp Effort & Inspection: normal respiratory effort and able to speak in complete sentences Auscultation: clear to auscultation bilaterally Cardio Rate: regular rate Rhythm: regular rhythm Heart Sounds: S1 normal and S2 normal Other: No rubs, gallops, clicks or murmurs appreciated GI Inspection: normal to inspection Palpation: soft Percussion: normal to percussion Auscultation: normal bowel sounds Other: No masses or tenderness Other: Voiding without difficulty Back/Spine/Pelvis Other: Patient complains of left hip and pelvic discomfort with movement of left leg, markedly less than yesterday. Skin General: no rashes or lesions noted, dry skin and warm Neuro General: alert, awake and oriented x3 Cognition: normal cognition Speech: speech normal Other: Decreased muscle strength on left lower extremity related to pain and discomfort but improved since yesterday. Decreased sensitivity to tactile stimulus in lower extremities secondary to neuropathy. Extrem General: capillary refill normal, no pedal edema and no calf tenderness Psych Appearance: grossly normal Mood: congruent mood Affect: normal affect Attitude: cooperative Thought Process: normal Thought Content: normal Judgment: judgment good Objective Labs Result Diagrams: 05/05/18 05:20 05/05/18 05:20 Labs: Laboratory Results - last 24 hr 07/24/18 07/25/18 07/25/18 17:16 05:20 05:20 WBC 5.5 RBC 2.92 L Hgb 10.6 L Hct 31.1 L MCV 106.5 H MCH 36.2 H MCHC 34.0 RDW 13.6 Plt Count 195 Neut % (Auto) 62.7 Lymph % (Auto) 22.3 L [place] % (Auto) 13.8 Eos % (Auto) 0.9 L Baso % (Auto) 0.3 Neut # (Auto) 3400 Sodium 134 L Potassium 3.1 L Chloride 96 L Carbon Dioxide 30 Magnesium 2.0 25-OH Vitamin D Total 25.1 L PROCEDURE: CT PEL WO CON INDICATIONS: hip fracture seen on x-ray today? TECHNIQUE: Noncontrast 3 mm axial sections acquired through the bony pelvis, with coronal and sagittal reformatting. COMPARISON: None. FINDINGS: Image quality: Excellent. Bones: As previously identified, there are comminuted fractures of both the superior and inferior left pubic ramus with displacement. In addition, there is a nondisplaced fracture of the left S1 vertebral body, obscured on prior exam secondary to overlying bowel gas. The there is no visualized left hip fracture as indicated of area of concern. However, there is sclerosis and areas of poorly defined sclerotic lucency within the right femoral head as well as areas of subchondral sclerosis and cyst formation. Soft tissues: Visualized soft tissues of the intra-abdominal pelvic contents demonstrates a large calcification within the uterus likely fibroid. Fat-containing ventral hernia is present. Colonic diverticula are noted. IMPRESSION: 1. Comminuted fracture of the superior and inferior left pubic rami. 2. Nondisplaced fracture of the left S1 vertebral body. 3. Focal areas of sclerosis and lucency within the right femoral head. Overall appearance is suggestive of chronic fracture. 4. Prominent calcification within the uterus likely fibroid. 5. Diverticulosis. Dictated by: Arlette Meadows M.D. on 05/02/2018 at 16:38 Approved by: Arlette Meadows M.D. on 05/02/2018 at 16:44 PROCEDURE: CT CERVICAL SPINE WO CON INDICATIONS: trauma? spine fxr w/ unclear history. TECHNIQUE: Noncontrast 3 mm thick sections acquired from the skull base to the T4 level. Sagittal and coronal reformats were then constructed. For radiation dose reduction, the following was used: automated exposure control, adjustment of mA and/or kV according to patient size. COMPARISON: None. FINDINGS: Image quality: Excellent. Bones: No fractures or dislocations. Visualized superior ribs are intact. There is slight reversal of normal cervical curvature. Multilevel degenerative changes are present including severe disc space narrowing at C5-6. There is trace anterolisthesis of C3 on C4, trace retrolisthesis of C5 on C6 and C6 on C7. Multilevel anterior osteophytes are present. Soft tissues: Prevertebral soft tissues are normal in thickness. No paravertebral hematomas. No apical pneumothoraces. IMPRESSION: Degenerative changes without visualized fracture. Dictated by: Arltete Meadows M.D. on 05/02/2018 at 18:44 Approved by: Arlette Meadows M.D. on 05/02/2018 at 18:46 PROCEDURE: CT CHEST ABD PEL W CON INDICATIONS: trauma? spine fxr w/ unclear hx TECHNIQUE: After the administration of intravenous contrast, 5 mm thick sections acquired from the lung apices to the symphysis. 2.5 mm thick coronal and sagittal reformats were acquired. Additional 7 mm thick coronal maximum intensity projection (MIP) reformats acquired through the lungs. Optional 10-minute delayed imaging may be performed from the kidneys to the bladder. For radiation dose reduction, the following was used: automated exposure control, adjustment of mA and/or kV according to patient size. COMPARISON: [facility], CT, CT PEL WO CON, 05/02/2018, 14:34. [facility], CR, XR HIP W PEL IF DONE LT 2V, 05/02/2018, 12:18. FINDINGS: Image quality: Excellent. CHEST: Lungs: No pulmonary contusions or lacerations. No acute airspace opacities. No pneumothorax or hemothorax. Central and peripheral airways appear patent and normal in caliber. Mediastinum: No mediastinal hematomas. Heart size is normal. No pericardial effusion. Thoracic aorta and pulmonary arteries demonstrate normal size and enhancement. No mediastinal or hilar adenopathy. Esophagus demonstrates mild circumferential distal thickening with hiatal hernia. Chest wall: No rib fractures. No subcutaneous emphysema. No axillary or supraclavicular adenopathy. Thyroid gland is unremarkable. ABDOMEN: Solid organs: Liver is enlarged and demonstrates steatosis. 4 mm focus of enhancement is present along the lateral aspect of the right hepatic lobe on series 3 image 66. Gallbladder is unremarkable. Biliary system is non-dilated. Pancreas enhances normally, without transection. Spleen is normal in size and enhancement, without lacerations. No adrenal hematomas. Both kidneys enhance normally, without hydronephrosis or lacerations. Peritoneum and bowel: No free fluid or air. Unenhanced bowel loops demonstrate normal wall thickness and caliber. Nodes and vessels: No retroperitoneal or mesenteric adenopathy. Aorta and inferior vena cava are normal in size and enhancement. Miscellaneous: No ventral hernias. PELVIS: Genitourinary: Bladder wall thickness is normal. Prominent calcifications present within the uterus, likely fibroid. Miscellaneous: No inguinal hernias or adenopathy. Bones: Comminuted left superior and inferior pubic ramus fractures are identified. In addition, there are areas of sclerosis and lucency identified within the right femoral head, as noted on CT pelvis of 05/02/18. IMPRESSION: 1. 3 mm right lower lobe pulmonary nodule, nonspecific. No priors are available for comparison. Recommend interval followup as below. 2. 4 mm focus of enhancement along the right lateral hepatic lobe. No priors are available for comparison. This is overall nonspecific. This could be related to a small hemangioma. Given history of trauma liver contusion/laceration cannot be definitively excluded. However, there is no surrounding secondary signs of trauma. Recommend clinical correlation and interval followup as indicated. 3. Comminuted left superior and inferior pubic rami fractures as previously identified. Sclerosis and lucency within the right femoral head most suggestive of chronic fracture again identified. 4. Uterine fibroid. Fleischner Society criteria for lung nodule followup. Nodule size (mm)Low-risk patientHigh-risk patient<6 (single or multiple)No routine followup/Optional CT at 12 months.6-8 (single or multiple)CT at 6-12 months; then noptional CT at 18-24 monthsCT at 6-12 months, then 18-24 months i>8 (single) CT at 3 months, then optional CT at 18-24 months if no change.Initial follow-up CT at 3- 6 months, then 18-24 months >8 (multiple)CT at 3-[address] at 18- 24 months.CT at 3-6 months, then CT at 18-24 months.Non-solid (ground-glass) or partly solid nodules may require longer follow-up to exclude indolent adenocarcinoma. Dictated by: Arlette Meadows M.D. on 05/02/2018 at 18:33 Approved by: Arlette Meadows M.D. on 05/02/2018 at 18:44 PROCEDURE: CT HEAD/BRAIN WO CON INDICATIONS: trauma TECHNIQUE: Noncontrast 4.5 mm thick angled axial sections acquired from the foramen magnum to the vertex, with coronal and sagittal reformats. For radiation dose reduction, the following was used: automated exposure control, adjustment of mA and/or kV according to patient size. COMPARISON: None. FINDINGS: Image quality: Excellent. CSF spaces: Basal cisterns are patent. No extra-axial fluid collections. The ventricles are symmetric in size and shape. Brain: No intracranial bleeds or masses. There is cerebral volume loss for age , with resultant ventricular and sulcal prominence. There are periventricular and deep white matter chronic small vessel ischemic changes. There is intracranial internal carotid artery atherosclerosis. Skull and face: Calvarium and visualized facial bones appear intact, without suspicious lesions. Sinuses: Visualized sinuses and mastoids are clear. IMPRESSION: 1. No acute intracranial process. 2. Moderate atrophy and chronic microvascular ischemic changes. Dictated by: Arlette Meadows M.D. on 05/02/2018 at 16:37 Approved by: Arlette Meadows M.D. on 05/02/2018 at 16:37 Discharge Plan Discharge Plan Patient Disposition: SNF Transfer to: [facility] Transportation: Facility vehicle Discharge comment: Patient will need physical therapy and occupational therapy. She is visiting from [place] no need to follow up with her PCP I certify the postop hospital nursing home care is medically necessary on a continuing basis for any conditions for which he/ she received care during this hospitalization.: Yes The receiving facility has agreed to accept transfer and provide medical treatment.: Yes Discharge Med Rec/Prescriptions Prescriptions: New alprazolam 0.25 mg Tablet 0.25 mg PO Q6H PRN (Reason: Anxiety) 5 Days RF: 0 cholecalciferol (vitamin D3) [Vitamin D3] 1,000 unit Tablet 2,000 unit PO DAILY 30 Days RF: 3 oxycodone 10 mg Tablet 10 mg PO Q3HR PRN (Reason: Pain, Severe (7-10)) 5 Days RF: 0 Continue gabapentin 100 mg capsule 400 mg PO QPM RF: 0 Discharge Health Status Multidrug resistant organism: No MDRO Precautions: [place] Provider Discharge Instructions Diet: Regular Food texture: Regular Activity: Up with assistance Oxygen: Room air [facility] Reason for rehabilitation: Recovery r/t decondition Rehab type: Physical therapy and Occupational therapy Visit Report/Discharge Packet Instructions: Pelvic Fracture, DI for Pelvic Fracture Discharge Data Attending Provider: Hans White Admit Date/Time: 05/02/18 20:58 Quality VTE Deep Vein Thrombosis/Pulmonary Embolism Present on Admission: No
[2018-05-05] MEDS: CHOLECALCIFEROL (VITAMIN D3) 1,000 UNIT TABLET 2000 UNIT PO (09:24)
[2018-05-05] MEDS: POTASSIUM CHLORIDE 20 MEQ TAB 40 MEQ PO (09:24)
[2018-05-05] MEDS: ENOXAPARIN 40 MG/0.4 ML SYRINGE SUBCUT (09:33)
--- NOTE | 2018-05-05 10:09 | CM.DPC ---
[facility] packet faxed per Jessica
[2018-05-05] MEDS: ACETAMINOPHEN 325 MG TABLET 650 MG PO (10:15)
--- NOTE | 2018-05-05 11:00 | PT.IPTN ---
Physical Therapy Treatment Note M2 PT-IP Current Condition Start: 05/03/18 07:31 Freq: NEEDED Status: Active Protocol: Document 05/03/18 09:27 RS (Rec: 05/03/18 09:32 RS [id number]) Physical Therapy Current Condition Current Condition Evaluation Date 05/03/18 Treatment Diagnosis S1, L pubic rami, and possible L prox femur fractures Onset Date 05/01/18 Weight Bearing Status Weight Bearing Status Weight Bear as Tolerated M3 PT-IP Subjective Start: 05/03/18 07:31 Freq: NEEDED Status: Active Protocol: Document 05/05/18 11:00 GGD (Rec: 05/05/18 11:52 GGD [email or web address]) Subjective Physical Therapy Visit Type Type Treatment Note Visit Start Time 10:15 Visit Stop Time 11:00 Total Visit Minutes 45 Number of AIRPLANE TUBE BUILDER Visits 1 Physical Therapy Visit Comments Patient Comments Pt states that she needs to use the bathroom. She is nervous about D/C. Therapy Pain Assessment Pain When Pain Assessed At Rest Pain Present Pain Present Pain Reported Location Left Hip Intensity 7 Pain Management Techniques Re-positioning Timing of Activity with Medications M4 PT-IP Mobility and Gait Start: 05/03/18 07:31 Freq: NEEDED Status: Active Protocol: Document 05/05/18 11:00 GGD (Rec: 05/05/18 11:52 GGD [email or web address]) PT-Bed Mobility Assessment Supine to Sit Supine to Sit Minimal Assistance 1 Person Assistance Head of Bed Elevated Bedrails Scooting Scooting to Edge of Bed Minimal Assistance PT-Transfer Assessment Sit to and From Stand Sit to and from Stand Moderate Assistance 1 Person Assistance Use of Upper Extremities Equipment Transfer Assistive Device Gait Belt Front Wheeled Walker Transfers Transfer Destination Chair Bedside Commode Transfer Technique Stand Pivot Transfer Ability Level of Assist Moderate Assistance 1 Person Assistance Comments Mobility Comments Pt transfer to BSC and then stand with BSC and chair placed behind. She need min a for sitting to chair. M5 PT-IP Objective Assessments Start: 05/03/18 07:31 Freq: NEEDED Status: Active Protocol: Document 05/03/18 13:18 RS (Rec: 05/03/18 13:29 RS [id number]) Orientation Orientation/Cognition Level of Alertness Alert Orientation Name Age Birthday Month Date Year Day of Week Place Situation Language Function Ability No Deficits Noted Safety Awareness Understands Safety Issues Memory Description No Deficits Noted Comments Pt reported being loopy from pain meds but was able to answer all questions without difficulty. Gross Range of Motion Upper Extremity ROM Assessment Within Functional Limits Lower Extremity ROM Impairments RLE grossly intact, LLE unable to test due to significant pain with any movement Strength Upper Extremity Strength Assessment Within Functional Limits Comments Strength Comments RLE grossly intact, LLE unable to test due to significant pain with any movement M6 PT-IP Treatment Start: 05/03/18 07:31 Freq: NEEDED Status: Active Protocol: Document 05/03/18 13:18 RS (Rec: 05/03/18 13:29 RS [id number]) Physical Therapy Treatment Education Education Provided Precautions Weight Bearing Status Safety M7 PT-IP Assessment and Plan Start: 05/03/18 07:31 Freq: NEEDED Status: Active Protocol: Document 05/05/18 11:00 GGD (Rec: 05/05/18 11:52 GGD [email or web address]) PT Summary Assessment and Plan Summary Assessment Summary Pt is slow moving with transfers and bed mobility. She need cues for all mobility . Frequency of Treatment Frequency Of Treatment Twice a Day Treatment Plan Physical Therapy Treatment Plan Bed Mobility Training Transfer Training Gait Training Therapeutic Exercise Discharge Planning Recommendations To Nursing Amount of Assist Needed 2 Person Assist Discharge Recommendations PT Discharge Recommendations SNF Rehab
[2018-05-05 11:06] VITALS: RESP 16
--- NOTE | 2018-05-05 12:21 | PC.NURSE ---
1220 Pt transfered to [facility] via w/c. Report called to JOHN Rodriguez.
--- NOTE | 2018-05-05 15:31 | CM.DPC ---
DC NOte: DC order in place for SNF. Pt and spouse remain agreeable to [facility], private payment. Spouse relayed concerns to this PROTECTION ANALYST and RN Industrial Gas Servicer Supervisor Linda Tucker re pt's observation status, cost of paying privately at SNF, and spending 10 hours in the ER before being admitted to 206. This PROTECTION ANALYST reviewed a brief summary of obs vs inpt and billing under Medicare part B, pt/spouse have [employer] as their secondary insurance. Both Linda and this PROTECTION ANALYST strongly encouraged spouse to complete the patient survey w/his concerns. Requested that physician assistant Jodie coordinate the remainder of the DC details, lobito, p/u time, coordination w/the RN. TYE Tyler
== END 2018-05-05 12:22 ==
LOC: ED 12:53 → AC 05-03 07:24
PROVIDERS: Nurse Practitioner Acute Care; Admitting Provider Internal Medicine; Emergency Provider Emergency Medicine; Visit Provider Internal Medicine
DX: S32.592A Other specified fracture of left pubis, initial encounter for closed fracture (principal); S32.10XA Unspecified fracture of sacrum, initial encounter for closed fracture; M25.552 Pain in left hip; W01.10XA Fall on same level from slipping, tripping and stumbling with subsequent striking against unspecified object, initial encounter; F10.20 Alcohol dependence, uncomplicated; D53.9 Nutritional anemia, unspecified; R91.8 Other nonspecific abnormal finding of lung field; R93.2 Abnormal findings on diagnostic imaging of liver and biliary tract; G62.9 Polyneuropathy, unspecified; E55.9 Vitamin D deficiency, unspecified; K57.30 Diverticulosis of large intestine without perforation or abscess without bleeding
CPT/HCPCS: 36415; 36592; 70450; 71260; 72125; 72192; 73502; 74177; 80051; 80053; 80320; 82306; 82607; 82977; 83735; 85025; 96374; 96376; 97163; 97530; 99283; 99285; G0378; J1170; J1650; Q9967

== ENCOUNTER → 2018-05-12 08:04 | Outpatient (REF) | payer SELFPAY ==
[2018-05-02 20:00] VITALS: BMI 32.9
[2018-05-12 09:21] LABS: Blood Urea Nitrogen 9 mg/dL (7-17); Calcium 9.3 mg/dL (8.4-10.2); Carbon Dioxide 33 mmol/L (22-32); Chloride 99 mmol/L (98-107); Estimated Glomerular Filt Rate > 60.0 mL/min (>60); Glucose 79 mg/dL (80-110); HEMOLYSIS < 15 (0-50); Sodium 139 mmol/L (137-145)
== END ==
LOC: LAB 08:04
PROVIDERS: Visit Provider Internal Medicine
DX: S32.9XXA Fracture of unspecified parts of lumbosacral spine and pelvis, initial encounter for closed fracture (principal)
CPT/HCPCS: 36415; 80048